=== PATIENT | male | born 1975 | race Caucasian/White ===

== ENCOUNTER 2017-01-12 13:44 | Inpatient (IN) | payer MEDICAID, OTHER ==
[~2017-01-12] VITALS: Ht 177.8 cm; Wt 64.9 kg
[2017-01-12] MEDS ORDERED: BENZ2TAB10 PO (13:59)
[2017-01-12] MEDS ORDERED: OLAN10TA22 PO (13:59)
[2017-01-12] MEDS ORDERED: BUPR-47 PO (13:59)
[2017-01-12] MEDS ORDERED: HALOPERIDOL LACTATE 5 MG/ML VIAL IM ONE (14:15)
[2017-01-12] MEDS ORDERED: LORazepam 2 MG/ML VIAL IM ONE (14:15)
[2017-01-12] MEDS ORDERED: DiphenhydrAMINE HCL 50 MG/ML VIAL IM ONE (14:15)
[2017-01-12 14:22] LABS: BASOPHILS # (AUTO) 0.04 K/uL (0.00-0.20); BASOPHILS % (AUTO) 0.3 % (0.0-2.0); EOSINOPHILS # (AUTO) 0.03 K/uL (0.00-0.70); HEMATOCRIT 46.5 % (41-53); HEMOGLOBIN 15.6 g/dL (13.5-17.5); LYMPHOCYTES # (AUTO) 1.5 K/uL (1.0-4.8); LYMPHOCYTES % (AUTO) 10.9 % (22.0-44.0); MEAN CORPUSCULAR HEMOGLOBIN 30.6 pg (26.0-34.0); MEAN CORPUSCULAR HGB CONC 33.5 G/dL (31.0-37.0); MEAN CORPUSCULAR VOLUME 91 fL (80-100); MONOCYTES % (AUTO) 7.4 % (2.0-9.0); NEUTROPHILS # (AUTO) 10.9 K/uL (1.8-7.7); NEUTROPHILS % (AUTO) 81.2 % (40.0-70.0); PLATELET COUNT (AUTO) 231 K/uL (150-450); RED BLOOD CELL COUNT(AUTO) 5.09 MIL/uL (4.50-5.90); RED CELL DISTRIBUTION WIDTH 13.1 % (11.5-14.5); WHITE BLOOD COUNT (AUTO) 13.4 K/uL (4.5-11.0)
[2017-01-12 14:37] LABS: ANION GAP 10 mmol/L (8-16); CALCIUM, TOTAL 8.9 mg/dL (8.8-10.5); CARBON DIOXIDE 28 mmol/L (22-29); CHLORIDE 99 mmol/L (98-107); CREATININE 0.96 mg/dL (0.60-1.30); GLOMERULAR FILTR. RATE CALC > 60 mL/min (>60); POTASSIUM 3.5 mmol/L (3.5-5.1); SODIUM SERUM 137 mmol/L (136-145); UREA NITROGEN, BLOOD 7 mg/dL (7-18)
[2017-01-12 14:44] LABS: ALANINE AMINOTRANSFERASE 53 U/L (12-78); ALBUMIN 3.6 g/dL (3.4-5.0); ASPARTATE AMINOTRANSFERASE 34 U/L (15-37); BILIRUBIN,TOTAL 0.7 mg/dL (0.1-1.0); TOTAL PROTEIN, SERUM 8.2 g/dL (6.4-8.2)
[2017-01-12] MEDS ORDERED: MAGNESIUM HYDROXIDE SUSPENSION 30 ML UDCUP PO PRN (15:45)
[2017-01-12] MEDS ORDERED: LOPERAMIDE HCL 2 MG CAPSULE PO PRN (15:45)
[2017-01-12] MEDS ORDERED: ZOLPIDEM TARTRATE 10 MG TABLET PO PRN (15:45)
[2017-01-12] MEDS ORDERED: ACETAMINOPHEN 325 MG TABLET PO PRN (15:45)
[2017-01-12] MEDS ORDERED: MAG HYDROX/AL HYDROX/SIMETH ES 30 ML SUSPENSION UDCUP PO PRN (15:45)
[2017-01-12 18:54] LABS: APPEARANCE,URINE CLEAR (CLEAR); GLUCOSE, URINE (UA) NEGATIVE (NEGATIVE); OCCULT BLOOD,URINE NEGATIVE (NEGATIVE); PH,URINE 7.5 (5.0-8.0); PROTEIN,URINE NEGATIVE (NEGATIVE)
[2017-01-12 18:55] LABS: ADD UA MICROSCOPIC NO; KETONES,URINE NEGATIVE (NEGATIVE); LEUKOCYTE ESTERASE ,URINE NEGATIVE (NEGATIVE)
[2017-01-12 21:31] VITALS: BP 106/65
[2017-01-13 06:36] VITALS: BP 114/73
[2017-01-13] MEDS: DIVALPROEX SODIUM 500 MG DR TABLET PO SCH (17:22)
[2017-01-13] MEDS: OLANZapine 7.5 MG TABLET PO SCH (20:40)
[2017-01-14 07:09] VITALS: BP 118/67
[2017-01-14] MEDS: DIVALPROEX SODIUM 500 MG DR TABLET PO SCH ×2 (09:28→16:57)
[2017-01-14] MEDS: LORazepam 2 MG TABLET PO PRN ×2 (09:28→16:58)
[2017-01-14] MEDS ORDERED: LORazepam 2 MG/ML VIAL IM ONE (13:30)
[2017-01-14] MEDS ORDERED: DiphenhydrAMINE HCL 50 MG/ML VIAL IM ONE (13:30)
[2017-01-14] MEDS ORDERED: HALOPERIDOL LACTATE 5 MG/ML VIAL IM ONE (13:30)
[2017-01-14] MEDS: OLANZapine 7.5 MG TABLET PO SCH (21:17)
[2017-01-15 06:45] VITALS: BP 125/68
[2017-01-15] MEDS: DIVALPROEX SODIUM 500 MG DR TABLET PO SCH ×2 (08:43→17:10)
[2017-01-15] MEDS: LORazepam 2 MG TABLET PO PRN (08:43)
[2017-01-15] MEDS: HALOPERIDOL 5 MG TABLET PO PRN (08:43)
[2017-01-15] MEDS: OLANZapine 7.5 MG TABLET PO SCH (20:38)
[2017-01-16 06:16] VITALS: BP 120/60
[2017-01-16 08:30] VITALS: BP 106/61
[2017-01-16] MEDS: HALOPERIDOL 5 MG TABLET PO PRN (09:22)
[2017-01-16] MEDS: DIVALPROEX SODIUM 500 MG DR TABLET PO SCH ×2 (09:22→17:45)
[2017-01-16 16:00] VITALS: BP 113/67
[2017-01-16] MEDS: LORazepam 2 MG TABLET PO PRN (17:45)
[2017-01-16] MEDS: OLANZapine 7.5 MG TABLET PO SCH (20:23)
[2017-01-17] MEDS: DIVALPROEX SODIUM 500 MG DR TABLET PO SCH ×2 (09:37→16:33)
[2017-01-17 16:00] VITALS: BP 113/68
[2017-01-17] MEDS: OLANZapine 7.5 MG TABLET PO SCH (20:52)
[2017-01-18] MEDS: DIVALPROEX SODIUM 500 MG DR TABLET PO SCH ×2 (09:50→16:43)
[2017-01-18 16:14] VITALS: BP 104/66
[2017-01-18] MEDS: OLANZapine 7.5 MG TABLET PO SCH (20:36)
[2017-01-19] MEDS: DIVALPROEX SODIUM 500 MG DR TABLET PO SCH ×2 (08:17→16:22)
[2017-01-19 16:05] VITALS: BP 108/69
[2017-01-19] MEDS: OLANZapine 7.5 MG TABLET PO SCH (20:31)
[2017-01-20] MEDS: DIVALPROEX SODIUM 500 MG DR TABLET PO SCH ×2 (09:26→17:05)
[2017-01-20 16:00] VITALS: BP 114/67
[2017-01-20] MEDS: OLANZapine 7.5 MG TABLET PO SCH (20:29)
[2017-01-21 06:42] VITALS: BP 107/60
[2017-01-21] MEDS: DIVALPROEX SODIUM 500 MG DR TABLET PO SCH ×2 (08:38→17:35)
[2017-01-21 16:00] VITALS: BP 105/64
[2017-01-21] MEDS: OLANZapine 7.5 MG TABLET PO SCH (21:07)
[2017-01-22 06:14] VITALS: BP 109/68
[2017-01-22] MEDS: DIVALPROEX SODIUM 500 MG DR TABLET PO SCH ×2 (09:42→17:12)
[2017-01-22 16:08] VITALS: BP 111/70
[2017-01-22] MEDS: OLANZapine 7.5 MG TABLET PO SCH (20:32)
[2017-01-23 06:38] VITALS: BP 104/60
[2017-01-23] MEDS: DIVALPROEX SODIUM 500 MG DR TABLET PO SCH ×2 (09:20→17:09)
[2017-01-23 16:00] VITALS: BP 114/68
[2017-01-23] MEDS: OLANZapine 7.5 MG TABLET PO SCH (20:31)
[2017-01-24 07:17] VITALS: BP 112/63
[2017-01-24 08:07] VITALS: BP 105/60
[2017-01-24] MEDS: DIVALPROEX SODIUM 500 MG DR TABLET PO SCH (09:39)
[2017-01-24] MEDS ORDERED: DIVA500T35 PO (12:22)
[2017-01-24] MEDS ORDERED: OLAN7.5T2 PO (12:23)
== END 2017-01-24 14:30 | disposition home or self-care (01) | DRG 750 ==
LOC: EEVIPCON 13:46 → EMS 13:46 → B3A 19:30
PROVIDERS: ADMIT Psychiatry & Neurology Psychiatry; ATTEND Psychiatry & Neurology Psychiatry
DX: F20.0 Paranoid schizophrenia (principal); R00.0 Tachycardia, unspecified; Z88.0 Allergy status to penicillin; Z79.899 Other long term (current) drug therapy
CPT/HCPCS: 87081; 96372; 99285; G0480; J1200; J1630; J2060

== ENCOUNTER 2023-06-02 11:00 | Emergency (ER) | payer MEDICAID, OTHER ==
[~2023-06-02] VITALS: Ht 170.2 cm; Wt 68.2 kg
[~2023-06-02 11:00] MED LIST: DIVA-112 PO; OLAN7.5T22 PO
[2023-06-02 11:12] VITALS: BP 124/84; PULSE 88; RESP 16; TEMP 98.6
[2023-06-02] MEDS ORDERED: PERMETHRIN 5% 60 GM CREAM TP ONE (11:15)
[2023-06-03] MEDS ORDERED: DOXY-354 PO (08:49)
== END 2023-06-02 11:49 | disposition home or self-care (01) ==
LOC: EMS 11:03
DX: B86 Scabies (principal); F20.9 Schizophrenia, unspecified; Z88.0 Allergy status to penicillin
CPT/HCPCS: 99283

== ENCOUNTER 2023-06-03 07:35 | Emergency (ER) | payer OTHER ==
[~2023-06-03] VITALS: Ht 177.8 cm; Wt 69.5 kg
[2023-06-03 07:59] VITALS: TEMP 98.3
[2023-06-03 08:45] VITALS: BP 132/87; PULSE 88; RESP 16
[2023-06-03] MEDS ORDERED: DOXY-354 PO (08:49)
== END 2023-06-03 09:12 | disposition home or self-care (01) ==
LOC: EMS 07:35
DX: L03.115 Cellulitis of right lower limb (principal); F20.9 Schizophrenia, unspecified; Z88.0 Allergy status to penicillin
CPT/HCPCS: 99283; Z7502

== ENCOUNTER 2024-09-30 12:04 | Inpatient (IN) | payer MEDICAID, OTHER ==
[~2024-09-30] VITALS: Ht 177.8 cm; Wt 69.0 kg
[~2024-09-30 12:04] MED LIST changes: +DOXY-354 PO
[2024-09-30 13:31] VITALS: BP 117/65; PULSE 88; O2SAT 99
[2024-09-30 15:38] LABS: COVID AG,FIA SOURCE NASAL SWAB
[2024-09-30 16:06] LABS: SARS-COV2 (COVID) ANTIGEN,FIA Negative (Negative)
[2024-10-01 02:57] VITALS: RESP 18
[2024-10-01 11:21] VITALS: RESP 18
[2024-10-01 11:26] VITALS: RESP 18
[2024-10-01] MEDS ORDERED: ACETAMINOPHEN 325 MG TABLET PO PRN (12:30)
[2024-10-01] MEDS ORDERED: IBUPROFEN 400 MG TABLET PO PRN (12:30)
[2024-10-01] MEDS ORDERED: PETROLATUM,WHITE 28 GM JELLY TP PRN (12:30)
[2024-10-01] MEDS ORDERED: ONDANSETRON 4 MG TABLET PO PRN (12:30)
[2024-10-01] MEDS ORDERED: LOPERAMIDE HCL 2 MG CAPSULE PO PRN (12:30)
[2024-10-01] MEDS ORDERED: MAGNESIUM HYDROXIDE SUSPENSION 30 ML UDCUP PO PRN (12:30)
[2024-10-01] MEDS ORDERED: ALBUTEROL SULFATE HFA 90 MCG/PUFF 8 GM INHALER IH PRN (12:30)
[2024-10-01] MEDS ORDERED: CloNIDine HCL 0.1 MG TABLET PO PRN (12:30)
[2024-10-01] MEDS ORDERED: NICOTINE 14 MG/24 HOUR PATCH TD PRN (12:30)
[2024-10-01] MEDS ORDERED: GuaiFENesin/D-METHORPHAN [SUGAR-FREE] 200-20MG/10 ML SYRUP UDCUP PO PRN (12:30)
[2024-10-01] MEDS ORDERED: DOCUSATE SODIUM 100 MG CAPSULE PO PRN (12:30)
[2024-10-01] MEDS ORDERED: MAG HYDROX/ALUMINUM HYD/SIMETH ES 30 ML SUSPENSION UDCUP PO PRN (12:30)
[2024-10-01] MEDS: DIVALPROEX SODIUM 500 MG DR TABLET PO SCH (16:01)
[2024-10-01 20:14] VITALS: RESP 16
[2024-10-01] MEDS: OLANZapine 7.5 MG TABLET PO SCH (21:00)
[2024-10-02 07:41] LABS: HEMOGLOBIN A1C 5.5 % (3.8-5.6)
[2024-10-02 07:47] LABS: CHOL/HDL RATIO 3.4 (4.2-7.3); THYROID STIMULATING HORMONE 1.18 uIU/mL (0.36-3.74)
[2024-10-02 09:28] VITALS: RESP 18
[2024-10-02 23:00] VITALS: RESP 18
[2024-10-03] MEDS: LORazepam 2 MG TABLET PO PRN (09:41)
[2024-10-03 10:03] VITALS: RESP 18
[2024-10-03 11:43] LABS: BASOPHILS % (AUTO) 1.1 % (0.0-2.0); EOSINOPHILS % (AUTO) 1.5 % (1.0-6.0); HEMATOCRIT 32.9 % (41-53); HEMOGLOBIN 10.5 g/dL (13.5-17.5); LYMPHOCYTES # (AUTO) 2.1 K/uL (1.0-4.8); LYMPHOCYTES % (AUTO) 23.8 % (22.0-44.0); MEAN CORPUSCULAR HEMOGLOBIN 25.8 pg (26.0-34.0); MEAN CORPUSCULAR HGB CONC 31.9 G/dL (31.0-37.0); MEAN CORPUSCULAR VOLUME 81 fL (80-100); MONOCYTES # (AUTO) 1.1 K/uL (0.1-1.0); MONOCYTES % (AUTO) 12.7 % (2.0-9.0); NEUTROPHILS # (AUTO) 5.3 K/uL (1.8-7.7); NEUTROPHILS % (AUTO) 60.9 % (40.0-70.0); PLATELET COUNT (AUTO) 364 K/uL (150-450); RED BLOOD CELL COUNT(AUTO) 4.07 MIL/uL (4.50-5.90); RED CELL DISTRIBUTION WIDTH 16.7 % (11.5-14.5); WHITE BLOOD COUNT (AUTO) 8.6 K/uL (4.5-11.0)
[2024-10-03] MEDS: OLANZapine 5 MG TABLET PO SCH (12:00)
[2024-10-03 12:10] LABS: ANION GAP 6 mmol/L (8-16); CARBON DIOXIDE 28 mmol/L (22-29); CHLORIDE 102 mmol/L (98-107); CREATININE 0.99 mg/dL (0.60-1.30); GLOMERULAR FILTR. RATE CALC > 60 mL/min (>60); GLUCOSE,RANDOM 101 mg/dL (70-110); POTASSIUM 5.3 mmol/L (3.5-5.1); SODIUM SERUM 136 mmol/L (136-145); UREA NITROGEN, BLOOD 15 mg/dL (7-18)
[2024-10-03 20:19] VITALS: RESP 18
[2024-10-03] MEDS: SODIUM POLYSTYRENE SULFONATE 15 GM/60 ML SUSPENSION BOTTLE PO ONE (21:21)
[2024-10-04] MEDS: FluPHENAZine HCL 2.5 MG/ML INJ IM PRN (08:45)
[2024-10-04 09:03] LABS: POTASSIUM 4.6 mmol/L (3.5-5.1)
[2024-10-04 09:07] LABS: VALPROIC ACID < 3 mcg/mL (50-100)
[2024-10-04 09:18] VITALS: RESP 18
[2024-10-04 21:09] VITALS: RESP 17
[2024-10-05 09:44] VITALS: RESP 16
[2024-10-05 20:58] VITALS: RESP 17
[2024-10-05 21:35] VITALS: TEMP 97
[2024-10-06 10:08] VITALS: RESP 18; TEMP 97
[2024-10-06 20:35] VITALS: RESP 18
[2024-10-07 09:42] VITALS: RESP 18
[2024-10-07 23:08] VITALS: RESP 18
[2024-10-08 09:34] VITALS: RESP 17
[2024-10-08] MEDS ORDERED: TUBERCULIN, PURIFIED PROTEIN DERIVATIVE 5 TU/0.1 ML SYRINGE ID ONE (14:30)
[2024-10-08 21:23] VITALS: RESP 18
[2024-10-09 09:08] VITALS: RESP 18
[2024-10-09 20:35] VITALS: RESP 18
[2024-10-10 10:45] VITALS: RESP 18
[2024-10-10] MEDS: HALOPERIDOL 5 MG TABLET PO PRN (16:32)
[2024-10-10 20:31] VITALS: RESP 18
[2024-10-11 09:18] VITALS: RESP 18
[2024-10-11 20:11] VITALS: RESP 18
[2024-10-12 11:12] VITALS: RESP 17
[2024-10-12 20:31] VITALS: RESP 18
[2024-10-13 09:00] VITALS: RESP 17
[2024-10-13 22:08] VITALS: RESP 17
[2024-10-14 14:22] VITALS: RESP 16
[2024-10-14 22:25] VITALS: RESP 17
[2024-10-15 09:15] VITALS: RESP 17
[2024-10-15] MEDS: ZOLPIDEM TARTRATE 10 MG TABLET PO PRN (21:21)
[2024-10-15 22:26] VITALS: RESP 18
[2024-10-16 09:43] VITALS: RESP 17
[2024-10-16 21:05] VITALS: RESP 18
[2024-10-17 09:06] VITALS: RESP 18
[2024-10-17 22:47] VITALS: RESP 18
[2024-10-18 10:49] VITALS: RESP 19
[2024-10-18 22:38] VITALS: RESP 18
[2024-10-19 08:54] VITALS: RESP 18
[2024-10-19 21:58] VITALS: RESP 18; TEMP 97.6
[2024-10-20 09:32] VITALS: RESP 18
[2024-10-20 20:42] VITALS: RESP 18
[2024-10-21 15:00] VITALS: RESP 19
[2024-10-21 20:20] VITALS: RESP 18
[2024-10-22 15:36] VITALS: RESP 17
[2024-10-22 19:02] LABS: COVID AG,FIA SOURCE NASAL SWAB
[2024-10-22 19:23] LABS: SARS-COV2 (COVID) ANTIGEN,FIA Negative (Negative)
[2024-10-22] MEDS: TUBERCULIN, PURIFIED PROTEIN DERIVATIVE 5 TU/0.1 ML SYRINGE ID ONE (20:41)
[2024-10-22 21:20] VITALS: RESP 18
[2024-10-23 09:30] VITALS: RESP 18
[2024-10-23 20:16] VITALS: RESP 18; TEMP 98
[2024-10-24] MEDS ORDERED: OLAN5TAB52 PO (07:27)
== END 2024-10-24 09:09 | DRG 750 ==
LOC: EMS 12:04 → 3EC 10-01 00:56
PROVIDERS: ADMIT Psychiatry & Neurology Child & Adolescent Psychiatry; ATTEND Psychiatry & Neurology Child & Adolescent Psychiatry
PROC: GZ56ZZZ Individual Psychotherapy, Supportive (ICD-10-PCS; principal; 2024-10-01)
PROC: GZHZZZZ Group Psychotherapy (ICD-10-PCS; 2024-10-01)
DX: F20.0 Paranoid schizophrenia (principal); E87.5 Hyperkalemia; F41.9 Anxiety disorder, unspecified; I10 Essential (primary) hypertension; Z20.822 Contact with and (suspected) exposure to COVID-19; K59.00 Constipation, unspecified; Z88.0 Allergy status to penicillin; Z86.59 Personal history of other mental and behavioral disorders; Z91.199 Patient's noncompliance with other medical treatment and regimen due to unspecified reason; R45.1 Restlessness and agitation
CPT/HCPCS: 80048; 80061; 80164; 82140; 83036; 84132; 84443; 85025; 99285; J3490